=== PATIENT | male | born 1945 | race Caucasian/White ===

== ENCOUNTER 2017-10-01 10:34 | Emergency (ER) | payer MEDICARE ==
[~2017-10-01] VITALS: Ht 177.8 cm; Wt 105.0 kg
[~2017-10-01 10:34] MED LIST: CARB200T16 PO
[2017-10-01 10:42] VITALS: BP 176/82; PULSE 92; RESP 19; TEMP 99.6; O2SAT 96
[2017-10-01] MEDS ORDERED: ASPI81CH6 CHEW (10:49)
[2017-10-01] MEDS ORDERED: TEGR200T PO (10:49)
[2017-10-01] MEDS ORDERED: AZIT250T3 PO (11:09)
[2017-10-01] MEDS ORDERED: BENZ100 PO (11:09)
--- NOTE | 2017-10-01 11:10 | PD ---
HPI Chief Complaint: Cold / Flu Symptoms Time Seen by Provider: 10:50 Travel History International Travel<30 days: No Contact w/Intl Traveler<30days: No Traveled to known affect area: No History of Present Illness HPI 72 -year-old male here with productive cough 6 days. he reports she had flulike symptoms prior to the cough which included fever, body ache, nasal congestion. He denies chest pain, palpitation, shortness of breath. Severity is moderate. No aggravating or alleviating factors. 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, hx fx r great toe) Asthma: No Autoimmune Disease: No Blood Disorders: No Anxiety: No Depression: No Heart Rhythm Problems: No Cancer: Yes (malignant melanoma r shoulder) Cardiovascular Problems: No High Cholesterol: No Chemotherapy: No Chest Pain: No Congestive Heart Failure: No COPD: No Cerebrovascular Accident: No Diabetes: No Diminished Hearing: No Endocrine: No Gastrointestinal Disorders: Yes GERD: Yes Genitourinary: No Hiatal Hernia: No Immune Disorder: No Kidney Stones: No Musculoskeletal: Yes (l leg wound) Neurologic: Yes Psychiatric: Yes (ptsd) Reproductive: No Respiratory: Yes Immunizations Current: Yes Migraines: No Radiation Therapy: No Renal Failure: No Seizures: Yes Sickle Cell Disease: No Sleep Apnea: No Thyroid Disease: No Ulcer: No Influenza Vaccination: No PNEUMOCCOCAL Vaccine (Year): 2 ?: Not Past Surgical History Abdominal Surgery: No AICD: No Arteriovenous Shunt: No Cardiac Surgery: No Ear Surgery: No Endocrine Surgery: No Eye Surgery: No Genitourinary Surgery: No Gynecologic Surgery: No Insulin Pump: No Joint Replacement: No Oral Surgery: No Pacemaker: No Thoracic Surgery: No Other Surgery: Yes (SKIN BIOPSY ABD. AND BACK) Social History Alcohol Use: Yes (occ) Tobacco Use: No Substance Use: No Allergies-Medications (Allergen,Severity, Reaction): Coded Allergies: No Known Allergies (Verified , 04/28/12) Reported Meds & Prescriptions Reported Meds & Active Scripts Active Tessalon Perles (Benzonatate) 100 Mg Cap 200 Mg PO TID PRN Azithromycin 250 Mg Tab 250 Mg PO DIRECTED Take 2 tabs (500 mg) on day 1 then 1 tab daily x 4 days. Reported Aspirin Low Dose (Aspirin) 81 Mg Chew 81 Mg CHEW DAILY Tegretol (Carbamazepine) 200 Mg Tab 200 Mg PO DIRECTED Review of Systems Except as stated in HPI: all other systems reviewed are Neg General / Constitutional: Positive: Fever HENT: Positive: Congestion Cardiovascular: No: Chest Pain or Discomfort Respiratory: Positive: Cough Gastrointestinal: No: Abdominal Pain Genitourinary: No: Dysuria Physical Exam Narrative GENERAL: Alert and well-appearing 72-year-old male SKIN: Warm and dry. HEAD: Atraumatic. Normocephalic. EYES: Pupils equal and round. No scleral icterus. No injection or drainage. ENT: No nasal bleeding or discharge. Mucous membranes pink and moist. NECK: Trachea midline. No JVD. CARDIOVASCULAR: Regular rate and rhythm. RESPIRATORY: No accessory muscle use. Clear to auscultation. Breath sounds equal bilaterally. Harsh sounding cough. GASTROINTESTINAL: Abdomen soft, non-tender, nondistended. MUSCULOSKELETAL: Extremities without clubbing, cyanosis, or edema. No obvious deformities. Data Data Last Documented VS Vital Signs Date Time Temp Pulse Resp B/P (MAP) Pulse Ox O2 Delivery O2 Flow Rate FiO2 10/01/17 10:42 99.6 92 19 176/82 (113) 96 MDM Medical Decision Making Medical Screen Exam Complete: Yes Emergency Medical Condition: Yes Differential Diagnosis Influenza, bronchitis, pneumonia Narrative Course 72-year-old male here with productive cough 6 days. he is nontoxic appearing. His vital signs are stable. he'll be treated for bronchitis Diagnosis Primary Impression: Bronchitis Referrals: Primary Care Physician Additional Instructions: Medication as prescribed. Stay well hydrated. Rest. Tylenol as needed for fever. Follow-up with her doctor Scripts Albuterol 8.5 GM Inh (Proair Hfa 8.5 GM Inh) 90 Mcg/Act Aer 2 PUFF INH Q4-6H Y for SHORTNESS OF BREATH, #1 INHALER 0 Refills 108 mcg/actuation Prov: Serena Ascencio [employer] 10/01/17 Benzonatate (Tessalon Perles) 100 Mg Cap 200 MG PO TID Y for COUGH, #14 CAP 0 Refills Prov: Serena Ascencio [employer] 10/01/17 Azithromycin (Azithromycin) 250 Mg Tab 250 MG PO DIRECTED for Infection, #6 TAB 0 Refills Take 2 tabs (500 mg) on day 1 then 1 tab daily x 4 days. Prov: Serena AscencioP 10/01/17 Disposition: 01 DISCHARGE HOME Condition: Stable Serena Ascencio Oct 01, 2017 11:10
[2017-10-01] MEDS ORDERED: ALBUAER3 INH (11:12)
== END 2017-10-01 11:33 | disposition home or self-care (01) ==
LOC: PHEFT 10:34
DX: J40 Bronchitis, not specified as acute or chronic (principal); R50.9 Fever, unspecified; R06.02 Shortness of breath; K21.9 Gastro-esophageal reflux disease without esophagitis; F43.10 Post-traumatic stress disorder, unspecified
CPT/HCPCS: 99284